=== PATIENT | female | born 1965 | race African-American/Black ===

== ENCOUNTER 2018-08-06 08:13 | Emergency (ER) | payer MEDICAID ==
[~2018-08-06] VITALS: Ht 172.7 cm; Wt 73.5 kg
[2018-08-06 08:30] VITALS: BP 159/57
[2018-08-06] MEDS ORDERED: ALBUTEROL SULF 2.5 MG/0.5ML(0.5%) NEB SOLN NEB ONE (09:00)
[2018-08-06] MEDS ORDERED: cefTRIAXone SOD 1,000 MG VL IM ONE (09:00)
[2018-08-06] MEDS ORDERED: IPRATROPIUM BROM 0.5 MG/2.5ML INH SOL NEB ONE (09:00)
[2018-08-06] MEDS ORDERED: methylPREDNISolone SOD SUCC 125 MG/2 ML VL IM ONE (09:00)
== END 2018-08-06 09:39 | disposition home or self-care (01) ==
LOC: ER 08:13
DX: J45.901 Unspecified asthma with (acute) exacerbation (principal); J02.9 Acute pharyngitis, unspecified; F41.9 Anxiety disorder, unspecified; F17.210 Nicotine dependence, cigarettes, uncomplicated; Z86.39 Personal history of other endocrine, nutritional and metabolic disease
CPT/HCPCS: 71046; 94640; 96372; 99283; J0696; J2930; J7611; J7644

== ENCOUNTER 2018-08-17 03:28 | Emergency (ER) | payer MEDICAID ==
[~2018-08-17] VITALS: Ht 172.7 cm; Wt 78.9 kg
[2018-08-17 04:23] LABS: Basophils # (auto) 0 uL; Basophils % (auto) 0.2 % (0.0-2.0); Eosinophils # (auto) 0.1 uL; Hematocrit 42.5 % (36.0-46.0); Hemoglobin 14.2 g/dL (12.2-16.2); Lymphocytes % (auto) 30.4 % (10.0-50.0); Mean Corpuscular Hemoglobin 29.3 pg (28.0-32.0); Mean Corpuscular Hgb Conc. 33.4 g/dL (32.0-36.0); Mean Corpuscular Volume 87.8 fL (80.0-100.0); Monocytes # (auto) 0.6 uL; Monocytes % (auto) 6.3 % (0.0-12.0); Neutrophils # (auto) 6.2 uL; Neutrophils % (auto) 62.1 % (37.0-80.0); Nucleated Red Blood Cells % 0.1 %; Platelet Count (auto) 185 10^3/uL (140-450); Red Blood Cells 4.84 10^6/uL (4.0-5.20); Red Cell Distribution Width 17.4 % (11.8-14.3)
[2018-08-17 04:40] LABS: Albumin 3.1 g/dL (3.4-5.0); Anion Gap 7 (5-15); Blood Urea Nitrogen 17 mg/dL (7-18); Calcium 8.3 mg/dL (8.5-10.1); Carbon Dioxide 25 mmol/L (21-32); Chloride 110 mmol/L (98-107); Glucose 120 mg/dL (74-106); Magnesium 2.3 mg/dL (1.6-2.6); Potassium 3.7 mmol/L (3.5-5.1); Sodium 142 mmol/L (136-145)
[2018-08-17 04:42] LABS: Alanine Aminotransferase 45 U/L (13-56); Aspartate Aminotransferase 40 U/L (15-37); BUN/Creatinine Ratio 16.8; GFR African American 73 mL/min; GFR Non-African American 61 mL/min
[2018-08-17 04:46] LABS: Alkaline Phosphatase 164 U/L (45-117); Bilirubin, Total 0.9 mg/dL (0.2-1.0); Total Protein 6.5 g/dL (6.4-8.2)
[2018-08-17] MEDS ORDERED: DILTIAZEM HCL 25 MG/5 ML VIAL IV ONE ×2 (05:15→06:15)
[2018-08-17] MEDS ORDERED: DILTIAZEM HCL 60 MG TAB PO ONE (05:15)
[2018-08-17 07:49] VITALS: BP 116/52
== END 2018-08-17 08:09 | disposition home or self-care (01) ==
LOC: ER 03:29
DX: I48.0 Paroxysmal atrial fibrillation (principal); I48.2 Chronic atrial fibrillation; E05.00 Thyrotoxicosis with diffuse goiter without thyrotoxic crisis or storm; F41.9 Anxiety disorder, unspecified; J45.909 Unspecified asthma, uncomplicated; F17.210 Nicotine dependence, cigarettes, uncomplicated
CPT/HCPCS: 36415; 71045; 80053; 83735; 83880; 84443; 84484; 85025; 93005; 96374

== ENCOUNTER 2020-07-22 08:35 | Inpatient (IN) | payer MEDICAID ==
[2020-07-22] VITALS (38 sets, daily range): BP systolic 54–136; BP diastolic 16–74
[~2020-07-22] VITALS: Ht 172.7 cm; Wt 102.9 kg
[~2020-07-22 08:35] MED LIST: FURO40TA4 PO; LEVO500T31 PO; METH10TA6 PO; METO25TA5 PO; POTA10TA51 PO; RIV20T PO; SACU1TAB PO
[2020-07-22] MEDS ORDERED: FUROSEMIDE 100 MG/10ML VIAL IV ONE (09:15)
[2020-07-22 09:22] LABS: Basophils # (auto) 0 10 ^3/uL (0-0.2); Basophils % (auto) 0.6 % (0.0-2.0); Eosinophils # (auto) 0 10 ^3/uL (0-0.8); Eosinophils % (auto) 0.1 % (0.0-7.0); Hematocrit 39.7 % (36.0-46.0); Hemoglobin 13.2 g/dL (12.2-16.2); Lymphocytes # (auto) 1.6 10 ^3/uL (0.4-5.4); Lymphocytes % (auto) 22.4 % (10.0-50.0); Mean Corpuscular Hemoglobin 30.2 pg (28.0-32.0); Mean Corpuscular Hgb Conc. 33.3 g/dL (32.0-36.0); Mean Corpuscular Volume 90.7 fL (80.0-100.0); Monocytes # (auto) 1.2 10 ^3/uL (0-1.3); Monocytes % (auto) 17.7 % (0.0-12.0); Neutrophils # (auto) 4.2 10 ^3/uL (1.6-8.6); Neutrophils % (auto) 59.2 % (37.0-80.0); Nucleated Red Blood Cells % 0.3 %; Platelet Count (auto) 177 10^3/uL (140-450); Red Blood Cells 4.38 10^6/uL (4.0-5.20)
[2020-07-22 09:26] LABS: Red Cell Distribution Width 20.6 % (11.8-14.3)
[2020-07-22 10:22] LABS: Albumin 1.9 g/dL (3.4-5.0); Calcium 8.6 mg/dL (8.5-10.1); Magnesium 2.1 mg/dL (1.6-2.6)
[2020-07-22 10:28] LABS: BUN/Creatinine Ratio 14.1; Bilirubin, Total 20.4 mg/dL (0.2-1.0); Total Protein 6.5 g/dL (6.4-8.2)
[2020-07-22 10:38] LABS: Potassium 2.8 mmol/L (3.5-5.1)
[2020-07-22 10:40] LABS: Urine Bacteria FEW /hpf (None Seen); Urine Blood Negative /uL (Negative); Urine Mucus FEW (None Seen); Urine Specific Gravity 1.017 (1.001-1.035); Urine WBC 6 /hpf (0 - 5)
[2020-07-22] MEDS ORDERED: POTASSIUM EFFERVESENT TAB 25 MEQ PO ONE ×2 (10:45→13:45)
[2020-07-22] MEDS: CARVEDILOL 3.125 MG TAB PO SCH (11:30)
[2020-07-22] MEDS ORDERED: ONDANSETRON HCL 4 MG/2 ML VIAL IV PRN (11:30)
[2020-07-22] MEDS ORDERED: AMIODARONE HCL 150 MG in D5W 5% 100 ML IV ONE (11:30)
[2020-07-22] MEDS ORDERED: guaiFENesin-DM 100/10mg/5ml SYR PO PRN (11:30)
[2020-07-22] MEDS ORDERED: ACETAMINOPHEN 500 MG TAB PO PRN (11:30)
[2020-07-22] MEDS ORDERED: NITROGLYCERIN 0.4 MG SL TAB SL PRN (11:30)
[2020-07-22] MEDS ORDERED: MORPHINE SULF INJ 2 MG/ML SYRINGE 1ML IV PRN (11:30)
[2020-07-22] MEDS ORDERED: AMIODARONE 450mg/250ml AE 250 ML IV SCH ×2 (11:45→17:45)
[2020-07-22] MEDS ORDERED: PANTOPRAZOLE 40 MG TAB PO ONE (11:45)
[2020-07-22] MEDS ORDERED: SPIRONOLACTONE 25 MG TAB PO ONE (11:45)
[2020-07-22] MEDS ORDERED: LISINOPRIL 5 MG TAB PO ONE (11:45)
[2020-07-22] MEDS ORDERED: FUROSEMIDE 40 MG TAB PO ONE (11:45)
[2020-07-22] MEDS ORDERED: ASPirin 81 mg TAB PO ONE (11:45)
[2020-07-22 12:53] LABS: INR 1.72 (0.9-1.15); Partial Thromboplastin Time 28.8 sec (23.0-31.2)
[2020-07-22] MEDS ORDERED: DIGOXIN (250MCG/ML) 2 ML AMPULE IV ONE ×3 (13:45→22:30)
[2020-07-22 13:46] LABS: Amphetamine Screen, Urine POSITIVE (NEGATIVE); Barbiturate Scree,Urine NEGATIVE (NEGATIVE); Cannabinoid Screen, Urine NEGATIVE (NEGATIVE)
[2020-07-22 13:48] LABS: Alcohol, Urine < 3.0 mg/dL (0-10); Benzodiazephine Screen, Urine NEGATIVE (NEGATIVE); Cocaine Screen, Urine NEGATIVE (NEGATIVE); Opiate Scree,Urine NEGATIVE (NEGATIVE); Phencyclidine Screen, Urine NEGATIVE (NEGATIVE)
[2020-07-22] MEDS ORDERED: DOPamine 1600MCG/ML D5W 250 ML IV SCH (14:30)
[2020-07-22] MEDS ORDERED: DOPamine 1600MCG/ML D5W 250 ML IV ONE (14:32)
[2020-07-22] MEDS ORDERED: DOBUTamine 1000MCG/ML 250 ML IV SCH (14:45)
[2020-07-22] MEDS ORDERED: DIGOXIN (250MCG/ML) 2 ML AMPULE IV SCH (15:00)
[2020-07-22] MEDS: CLINDAMYCIN 300MG IV 50 ML IV SCH ×2 (17:16→21:39)
[2020-07-22] MEDS: SPIRONOLACTONE 25 MG TAB PO SCH (18:35)
[2020-07-22] MEDS ORDERED: SODIUM CHLORIDE 0.9% 500 ML IV ONE (20:30)
[2020-07-22] MEDS: PHENYLEPHRINE IV 250 ML IV SCH (20:43)
[2020-07-22] MEDS ORDERED: ENOXAPARIN SOD 80 MG/0.8ML SYRINGE SC SCH (22:00)
[2020-07-22 22:43] LABS: Lactic Acid w/Reflex 2.1 mmol/L (0.4-2.0)
[2020-07-23] VITALS (93 sets, daily range): BP systolic 73–119; BP diastolic 29–83
[2020-07-23] MEDS: FUROSEMIDE 40 MG TAB PO SCH ×3 (00:55→17:21)
[2020-07-23] MEDS: CARVEDILOL 3.125 MG TAB PO SCH ×2 (00:56→09:32)
[2020-07-23 04:36] LABS: Calcium 8.6 mg/dL (8.5-10.1); Potassium 3.4 mmol/L (3.5-5.1)
[2020-07-23 04:39] LABS: BUN/Creatinine Ratio 14.8; Bilirubin, Total 23.4 mg/dL (0.2-1.0); Total Protein 6.5 g/dL (6.4-8.2)
[2020-07-23] MEDS: PHENYLEPHRINE IV 250 ML IV SCH (05:32)
[2020-07-23] MEDS: CLINDAMYCIN 300MG IV 50 ML IV SCH ×3 (06:19→21:38)
[2020-07-23] MEDS: SPIRONOLACTONE 25 MG TAB PO SCH ×2 (06:20→17:21)
[2020-07-23] MEDS ORDERED: POTASSIUM CHL 20MEQ/100ML 100 ML IV ONE (07:00)
[2020-07-23] MEDS ORDERED: POTASSIUM EFFERVESENT TAB 25 MEQ PO ONE (08:45)
[2020-07-23] MEDS ORDERED: POTASSIUM CHL 20 Meq TABLET PO ONE (09:00)
[2020-07-23] MEDS: PANTOPRAZOLE 40 MG TAB PO SCH (09:45)
[2020-07-23] MEDS: ASPirin 81 mg TAB PO SCH (09:45)
[2020-07-23] MEDS: DOBUTamine 1000MCG/ML 250 ML IV SCH ×2 (09:46→19:13)
[2020-07-23] MEDS: DIGOXIN (250MCG/ML) 2 ML AMPULE IV SCH (09:46)
[2020-07-23] MEDS ORDERED: LISINOPRIL 5 MG TAB PO SCH (10:00)
[2020-07-23] MEDS ORDERED: DIGOXIN 0.125 MG TAB PO SCH (10:00)
[2020-07-23] MEDS: PHENYLEPHRINE INJ 40 MG in SODIUM CHL 0.9% 246 ML IV SCH ×4 (10:54→22:08)
[2020-07-23 11:59] LABS: Free T3 9.83 pg/mL (2.3-4.2); Free T4 (Free Thyroxine) 1.87 ng/dL (0.89-1.76)
[2020-07-23] MEDS ORDERED: LIDOCAINE 1% (LOCAL ANESTH.) PF 5ml SDV ID ONE (13:15)
[2020-07-23] MEDS: NOREPINEPHRINE BITARTRATE 16 MG in SODIUM CHL 0.9% 234 ML IV SCH (13:33)
[2020-07-23] MEDS ORDERED: DEXTROSE (50%) 50ML SYRG IV PRN (13:45)
[2020-07-23] MEDS: ACCU-CHEK COMFORT CURVE STRIP VI SCH ×2 (17:21→21:55)
[2020-07-23] MEDS: InsuLIN REG 1unit/0.01ml Soln (100units/ml) SC SCH ×2 (17:30→22:03)
[2020-07-23] MEDS: MUPIROCIN 2% OINT 15gm or 22gm EACHNOSTRI SCH (21:38)
[2020-07-23] MEDS: POTASSIUM CHL 20 Meq TABLET PO SCH (21:39)
[2020-07-23] MEDS: SODIUM CHLOR 0.9% PF (SALINE LOCK) 10ML VIAL/SYR IV SCH (21:39)
[2020-07-24] VITALS (83 sets, daily range): BP systolic 94–129; BP diastolic 24–77
[2020-07-24] MEDS: PHENYLEPHRINE INJ 40 MG in SODIUM CHL 0.9% 246 ML IV SCH ×4 (02:02→13:41)
[2020-07-24] MEDS: DOBUTamine 1000MCG/ML 250 ML IV SCH ×2 (03:27→13:25)
[2020-07-24 04:21] LABS: Basophils # (auto) 0 10 ^3/uL (0-0.2); Basophils % (auto) 0.3 % (0.0-2.0); Eosinophils # (auto) 0 10 ^3/uL (0-0.8); Hematocrit 39.1 % (36.0-46.0); Hemoglobin 13.3 g/dL (12.2-16.2); Lymphocytes % (auto) 13.7 % (10.0-50.0); Mean Corpuscular Hemoglobin 30.7 pg (28.0-32.0); Mean Corpuscular Hgb Conc. 33.9 g/dL (32.0-36.0); Mean Corpuscular Volume 90.4 fL (80.0-100.0); Monocytes % (auto) 13.8 % (0.0-12.0); Neutrophils # (auto) 5.3 10 ^3/uL (1.6-8.6); Neutrophils % (auto) 72.2 % (37.0-80.0); Nucleated Red Blood Cells % 0.4 %; Platelet Count (auto) 160 10^3/uL (140-450); Red Blood Cells 4.32 10^6/uL (4.0-5.20); Red Cell Distribution Width 19.7 % (11.8-14.3); White Blood Cell 7.3 10^3/uL (4.4-10.8)
[2020-07-24 04:43] LABS: Albumin 1.9 g/dL (3.4-5.0); Anion Gap 8 (5-15); Blood Urea Nitrogen 28 mg/dL (7-18); Calcium 8.4 mg/dL (8.5-10.1); Carbon Dioxide 28 mmol/L (21-32); Chloride 97 mmol/L (98-107); Glucose 93 mg/dL (74-106); Magnesium 2.2 mg/dL (1.6-2.6); Potassium 3.8 mmol/L (3.5-5.1); Sodium 133 mmol/L (136-145)
[2020-07-24 04:47] LABS: INR 1.76 (0.9-1.15)
[2020-07-24 04:48] LABS: Alanine Aminotransferase 19 U/L (13-56); Alkaline Phosphatase 207 U/L (45-117); Aspartate Aminotransferase 45 U/L (15-37); BUN/Creatinine Ratio 20.1; Bilirubin, Total 21.9 mg/dL (0.2-1.0); Cholesterol < 50 mg/dL (< 200); GFR African American 50 mL/min; GFR Non-African American 42 mL/min; HDL Cholesterol 10 mg/dL (40-59); Total Protein 6.2 g/dL (6.4-8.2); Triglycerides 125 mg/dL (< 150)
[2020-07-24] MEDS: SPIRONOLACTONE 25 MG TAB PO SCH (05:39)
[2020-07-24] MEDS: CLINDAMYCIN 300MG IV 50 ML IV SCH ×3 (05:57→21:43)
[2020-07-24] MEDS: InsuLIN REG 1unit/0.01ml Soln (100units/ml) SC SCH ×2 (05:57→11:04)
[2020-07-24] MEDS: ACCU-CHEK COMFORT CURVE STRIP VI SCH ×2 (05:57→11:02)
[2020-07-24] MEDS: FUROSEMIDE 40 MG TAB PO SCH (05:57)
[2020-07-24] MEDS: POTASSIUM CHL 20 Meq TABLET PO SCH ×2 (10:59→21:45)
[2020-07-24] MEDS: PANTOPRAZOLE 40 MG TAB PO SCH (10:59)
[2020-07-24] MEDS: ASPirin 81 mg TAB PO SCH (10:59)
[2020-07-24] MEDS: DIGOXIN (250MCG/ML) 2 ML AMPULE IV SCH (11:00)
[2020-07-24] MEDS: SODIUM CHLOR 0.9% PF (SALINE LOCK) 10ML VIAL/SYR IV SCH ×2 (11:01→21:44)
[2020-07-24] MEDS: MUPIROCIN 2% OINT 15gm or 22gm EACHNOSTRI SCH ×2 (11:01→21:42)
[2020-07-24] MEDS: NOREPINEPHRINE BITARTRATE 16 MG in SODIUM CHL 0.9% 234 ML IV SCH (11:45)
[2020-07-24 12:22] LABS: LDL Cholesterol 36 mg/dL (< 100)
[2020-07-24] MEDS: FUROSEMIDE 40 MG/4 ML VIAL IV SCH (17:17)
[2020-07-24] MEDS ORDERED: FUROSEMIDE 20 MG/2 ML VIAL IV SCH (18:00)
[2020-07-24] MEDS: PHENYLEPHRINE INJ 80 MG in SODIUM CHL 0.9% 242 ML IV SCH (18:00)
[2020-07-24] MEDS: CARVEDILOL 3.125 MG TAB PO SCH (21:45)
[2020-07-24] MEDS: methIMAzole 5 MG TAB PO SCH (21:46)
[2020-07-25] VITALS (79 sets, daily range): BP systolic 93–136; BP diastolic 28–75
[2020-07-25 05:36] LABS: INR 1.77 (0.9-1.15)
[2020-07-25 05:41] LABS: Albumin 1.7 g/dL (3.4-5.0); Calcium 8.2 mg/dL (8.5-10.1)
[2020-07-25 05:45] LABS: BUN/Creatinine Ratio 27.3; Bilirubin, Total 21.1 mg/dL (0.2-1.0); Total Protein 6.1 g/dL (6.4-8.2)
[2020-07-25] MEDS: CLINDAMYCIN 300MG IV 50 ML IV SCH ×3 (06:21→22:31)
[2020-07-25] MEDS: FUROSEMIDE 40 MG/4 ML VIAL IV SCH ×2 (06:23→17:56)
[2020-07-25] MEDS: DOBUTamine 1000MCG/ML 250 ML IV SCH ×3 (08:09→17:55)
[2020-07-25] MEDS: ASPirin 81 mg TAB PO SCH (09:18)
[2020-07-25] MEDS: methIMAzole 5 MG TAB PO SCH ×2 (09:18→22:50)
[2020-07-25] MEDS: PANTOPRAZOLE 40 MG TAB PO SCH (09:19)
[2020-07-25] MEDS: DIGOXIN (250MCG/ML) 2 ML AMPULE IV SCH (09:19)
[2020-07-25] MEDS: SODIUM CHLOR 0.9% PF (SALINE LOCK) 10ML VIAL/SYR IV SCH ×2 (09:19→22:32)
[2020-07-25] MEDS: SPIRONOLACTONE 25 MG TAB PO SCH (09:20)
[2020-07-25] MEDS: CARVEDILOL 3.125 MG TAB PO SCH ×2 (09:20→22:49)
[2020-07-25] MEDS: POTASSIUM CHL 20 Meq TABLET PO SCH (09:20)
[2020-07-25 09:31] LABS: Hepatitis B Surface Antibody Negative
[2020-07-25] MEDS: MUPIROCIN 2% OINT 15gm or 22gm EACHNOSTRI SCH ×2 (09:37→22:31)
[2020-07-25 10:10] LABS: Hepatitis A Total Antibody Negative
[2020-07-25] MEDS: PHENYLEPHRINE INJ 80 MG in SODIUM CHL 0.9% 242 ML IV SCH (11:06)
[2020-07-25 13:15] LABS: Hepatitis B Core Total AB Negative; Hepatitis B Surface Antigen Negative (Negative); Hepatitis C Antibody Negative (Negative)
[2020-07-25] MEDS: RIVAROXABAN 20 MG TAB PO SCH (17:56)
[2020-07-25] MEDS: POTASSIUM CHL 10 Meq TABLET PO SCH (22:34)
[2020-07-26] VITALS (27 sets, daily range): BP systolic 108–133; BP diastolic 35–78
[2020-07-26] MEDS: LORazepam 0.5 MG TAB PO PRN (01:19)
[2020-07-26] MEDS: DOBUTamine 1000MCG/ML 250 ML IV SCH ×3 (03:37→23:52)
[2020-07-26 04:40] LABS: Albumin 1.7 g/dL (3.4-5.0); Calcium 8.3 mg/dL (8.5-10.1); Magnesium 2.1 mg/dL (1.6-2.6); Potassium 4.4 mmol/L (3.5-5.1)
[2020-07-26 04:45] LABS: BUN/Creatinine Ratio 32.6; Bilirubin, Total 21.3 mg/dL (0.2-1.0); Total Protein 6.3 g/dL (6.4-8.2)
[2020-07-26] MEDS: CLINDAMYCIN 300MG IV 50 ML IV SCH ×3 (06:01→22:08)
[2020-07-26] MEDS: FUROSEMIDE 40 MG/4 ML VIAL IV SCH ×2 (06:02→17:53)
[2020-07-26] MEDS: PANTOPRAZOLE 40 MG TAB PO SCH (09:54)
[2020-07-26] MEDS: ASPirin 81 mg TAB PO SCH (09:54)
[2020-07-26] MEDS: SPIRONOLACTONE 25 MG TAB PO SCH (09:55)
[2020-07-26] MEDS: POTASSIUM CHL 10 Meq TABLET PO SCH ×2 (09:55→22:07)
[2020-07-26] MEDS: methIMAzole 5 MG TAB PO SCH ×2 (09:56→22:08)
[2020-07-26] MEDS: DIGOXIN (250MCG/ML) 2 ML AMPULE IV SCH (09:56)
[2020-07-26] MEDS: MUPIROCIN 2% OINT 15gm or 22gm EACHNOSTRI SCH ×2 (09:56→22:00)
[2020-07-26] MEDS: SODIUM CHLOR 0.9% PF (SALINE LOCK) 10ML VIAL/SYR IV SCH ×2 (09:59→22:09)
[2020-07-26] MEDS: CARVEDILOL 3.125 MG TAB PO SCH ×2 (12:49→22:08)
[2020-07-26] MEDS: RIVAROXABAN 20 MG TAB PO SCH (17:53)
[2020-07-27 05:11] VITALS: BP 126/66
[2020-07-27] MEDS: CLINDAMYCIN 300MG IV 50 ML IV SCH (05:14)
[2020-07-27] MEDS: FUROSEMIDE 40 MG/4 ML VIAL IV SCH ×2 (05:15→17:47)
[2020-07-27 08:20] LABS: Basophils # (auto) 0 10 ^3/uL (0-0.2); Basophils % (auto) 0.2 % (0.0-2.0); Eosinophils # (auto) 0 10 ^3/uL (0-0.8); Eosinophils % (auto) 0.1 % (0.0-7.0); Hematocrit 40.8 % (36.0-46.0); Hemoglobin 13.7 g/dL (12.2-16.2); Lymphocytes # (auto) 0.9 10 ^3/uL (0.4-5.4); Lymphocytes % (auto) 18.9 % (10.0-50.0); Mean Corpuscular Hemoglobin 30.4 pg (28.0-32.0); Mean Corpuscular Hgb Conc. 33.6 g/dL (32.0-36.0); Mean Corpuscular Volume 90.5 fL (80.0-100.0); Monocytes # (auto) 0.9 10 ^3/uL (0-1.3); Monocytes % (auto) 17.6 % (0.0-12.0); Neutrophils # (auto) 3.2 10 ^3/uL (1.6-8.6); Neutrophils % (auto) 63.2 % (37.0-80.0); Nucleated Red Blood Cells % 0.9 %; Platelet Count (auto) 142 10^3/uL (140-450); Red Blood Cells 4.51 10^6/uL (4.0-5.20); Red Cell Distribution Width 20.6 % (11.8-14.3)
[2020-07-27 08:50] VITALS: BP 110/70
[2020-07-27 08:56] LABS: Albumin 1.8 g/dL (3.4-5.0); Calcium 8.6 mg/dL (8.5-10.1); Potassium 4.1 mmol/L (3.5-5.1)
[2020-07-27 09:03] LABS: BUN/Creatinine Ratio 32.5; Bilirubin, Total 22.9 mg/dL (0.2-1.0); Total Protein 6.4 g/dL (6.4-8.2)
[2020-07-27] MEDS: DOBUTamine 1000MCG/ML 250 ML IV SCH ×3 (09:11→20:23)
[2020-07-27] MEDS ORDERED: PHYTONADIONE (VIT K)10 MG/ML 1ML VIAL SUBCUT ONE (10:45)
[2020-07-27] MEDS ORDERED: PHYTONADIONE(VitK) ORAL Susp 10mg/10ml(1mg/ml) PO ONE (11:00)
[2020-07-27] MEDS: CARVEDILOL 3.125 MG TAB PO SCH ×2 (11:30→23:16)
[2020-07-27] MEDS: DIGOXIN (250MCG/ML) 2 ML AMPULE IV SCH (11:36)
[2020-07-27] MEDS: PANTOPRAZOLE 40 MG TAB PO SCH (11:37)
[2020-07-27] MEDS: POTASSIUM CHL 10 Meq TABLET PO SCH ×2 (11:37→23:16)
[2020-07-27] MEDS: methIMAzole 5 MG TAB PO SCH ×2 (11:37→23:16)
[2020-07-27] MEDS: SPIRONOLACTONE 25 MG TAB PO SCH (11:37)
[2020-07-27] MEDS: SODIUM CHLOR 0.9% PF (SALINE LOCK) 10ML VIAL/SYR IV SCH ×2 (11:39→23:15)
[2020-07-27 13:00] VITALS: BP 123/56
[2020-07-27] MEDS: MUPIROCIN 2% OINT 15gm or 22gm EACHNOSTRI SCH ×2 (15:25→23:15)
[2020-07-27 16:50] VITALS: BP 128/64
[2020-07-27 21:50] VITALS: BP 123/56
[2020-07-28 04:57] VITALS: BP 132/63
[2020-07-28 05:01] LABS: Hematocrit 41.4 % (36.0-46.0)
[2020-07-28] MEDS: FUROSEMIDE 40 MG/4 ML VIAL IV SCH ×2 (05:07→17:58)
[2020-07-28 05:13] LABS: INR 2.31 (0.9-1.15)
[2020-07-28 05:15] LABS: Albumin 1.9 g/dL (3.4-5.0); Calcium 8.6 mg/dL (8.5-10.1); Magnesium 2.4 mg/dL (1.6-2.6); Potassium 4.6 mmol/L (3.5-5.1)
[2020-07-28 05:18] LABS: BUN/Creatinine Ratio 30.4; Bilirubin, Total 22.7 mg/dL (0.2-1.0); Total Protein 6.5 g/dL (6.4-8.2)
[2020-07-28 08:30] VITALS: BP 107/70
[2020-07-28] MEDS: MUPIROCIN 2% OINT 15gm or 22gm EACHNOSTRI SCH (10:25)
[2020-07-28] MEDS: DOBUTamine 1000MCG/ML 250 ML IV SCH ×2 (10:25→20:13)
[2020-07-28] MEDS: POTASSIUM CHL 10 Meq TABLET PO SCH (10:26)
[2020-07-28] MEDS: methIMAzole 5 MG TAB PO SCH ×2 (10:27→21:50)
[2020-07-28] MEDS: PANTOPRAZOLE 40 MG TAB PO SCH (10:27)
[2020-07-28] MEDS: SODIUM CHLOR 0.9% PF (SALINE LOCK) 10ML VIAL/SYR IV SCH ×2 (10:27→21:49)
[2020-07-28] MEDS: DIGOXIN (250MCG/ML) 2 ML AMPULE IV SCH (10:29)
[2020-07-28] MEDS: MORPHINE SULF INJ 2 MG/ML SYRINGE 1ML IV PRN (10:47)
[2020-07-28] MEDS: CARVEDILOL 3.125 MG TAB PO SCH ×2 (10:48→21:50)
[2020-07-28] MEDS ORDERED: PHYTONADIONE(VitK) ORAL Susp 10mg/10ml(1mg/ml) PO ONE (11:00)
[2020-07-28] MEDS: SPIRONOLACTONE 25 MG TAB PO SCH (12:28)
[2020-07-28 12:30] VITALS: BP 132/84
[2020-07-28 17:00] VITALS: BP 126/65
[2020-07-28 22:00] VITALS: BP 97/77
[2020-07-28] MEDS: HYDROcodone-ACET 5/325MG TAB PO PRN (23:29)
[2020-07-29] MEDS: LORazepam 0.5 MG TAB PO PRN ×2 (00:22→09:29)
[2020-07-29 05:00] VITALS: BP 102/64
[2020-07-29] MEDS: FUROSEMIDE 40 MG/4 ML VIAL IV SCH ×2 (05:22→18:00)
[2020-07-29] MEDS: DOBUTamine 1000MCG/ML 250 ML IV SCH ×2 (05:23→22:25)
[2020-07-29 06:15] LABS: Hematocrit 42.4 % (36.0-46.0); Hemoglobin 14.4 g/dL (12.2-16.2)
[2020-07-29 06:30] LABS: INR 1.72 (0.9-1.15)
[2020-07-29 06:35] LABS: Potassium 4.3 mmol/L (3.5-5.1)
[2020-07-29 06:50] LABS: BUN/Creatinine Ratio 28.6; Bilirubin, Total 24.3 mg/dL (0.2-1.0); Total Protein 6.6 g/dL (6.4-8.2)
[2020-07-29 08:50] VITALS: BP 110/60
[2020-07-29] MEDS: SODIUM CHLOR 0.9% PF (SALINE LOCK) 10ML VIAL/SYR IV SCH ×2 (09:28→22:23)
[2020-07-29] MEDS: DIGOXIN (250MCG/ML) 2 ML AMPULE IV SCH (09:29)
[2020-07-29] MEDS: SPIRONOLACTONE 25 MG TAB PO SCH (09:29)
[2020-07-29] MEDS: CARVEDILOL 3.125 MG TAB PO SCH ×2 (09:29→22:24)
[2020-07-29] MEDS: PANTOPRAZOLE 40 MG TAB PO SCH (09:29)
[2020-07-29] MEDS: methIMAzole 5 MG TAB PO SCH ×2 (09:29→22:25)
[2020-07-29] MEDS: POTASSIUM CHL 10 Meq TABLET PO SCH (09:30)
[2020-07-29] MEDS: PHYTONADIONE(VitK) ORAL Susp 10mg/10ml(1mg/ml) PO SCH (10:21)
[2020-07-29] MEDS ORDERED: LEVALBUTEROL HCL 1.25 MG/3 ML NEB NEB PRN (12:30)
[2020-07-29] MEDS ORDERED: IPRATROPIUM BROM 0.5 MG/2.5ML INH SOL NEB PRN (12:30)
[2020-07-29 13:31] VITALS: BP 120/73
[2020-07-29 16:30] VITALS: BP 103/63
[2020-07-29] MEDS ORDERED: RIVAROXABAN 20 MG TAB PO SCH (18:00)
[2020-07-29] MEDS: MORPHINE SULF INJ 2 MG/ML SYRINGE 1ML IV PRN (21:48)
[2020-07-29 22:00] VITALS: BP 137/91
[2020-07-29] MEDS: SACUBITRIL-VALSARTAN 24mg/26mg TAB PO SCH (22:25)
[2020-07-30] MEDS: LORazepam 0.5 MG TAB PO PRN ×2 (01:00→12:39)
[2020-07-30] MEDS: MORPHINE SULF INJ 2 MG/ML SYRINGE 1ML IV PRN (02:52)
[2020-07-30 03:54] VITALS: BP 137/91
[2020-07-30 05:00] VITALS: BP 102/39
[2020-07-30] MEDS: FUROSEMIDE 40 MG/4 ML VIAL IV SCH ×2 (05:34→18:00)
[2020-07-30 05:52] LABS: Hematocrit 38.6 % (36.0-46.0); Hemoglobin 13.2 g/dL (12.2-16.2)
[2020-07-30 06:08] LABS: INR 3.64 (0.9-1.15)
[2020-07-30 06:10] LABS: Albumin 1.6 g/dL (3.4-5.0); Magnesium 2.3 mg/dL (1.6-2.6); Potassium 4.5 mmol/L (3.5-5.1)
[2020-07-30 06:21] LABS: Bilirubin, Direct 16.8 mg/dL (0-0.2); Bilirubin, Total 21.9 mg/dL (0.2-1.0); Total Protein 5.8 g/dL (6.4-8.2)
[2020-07-30] MEDS: DOBUTamine 1000MCG/ML 250 ML IV SCH ×2 (09:05→22:27)
[2020-07-30] MEDS: CARVEDILOL 3.125 MG TAB PO SCH ×2 (10:00→22:00)
[2020-07-30] MEDS: SODIUM CHLOR 0.9% PF (SALINE LOCK) 10ML VIAL/SYR IV SCH ×2 (10:00→22:24)
[2020-07-30] MEDS: POTASSIUM CHL 10 Meq TABLET PO SCH (10:00)
[2020-07-30] MEDS: SACUBITRIL-VALSARTAN 24mg/26mg TAB PO SCH ×2 (10:23→22:24)
[2020-07-30] MEDS: methIMAzole 5 MG TAB PO SCH ×2 (10:23→22:24)
[2020-07-30] MEDS: PANTOPRAZOLE 40 MG TAB PO SCH (10:23)
[2020-07-30] MEDS: SPIRONOLACTONE 25 MG TAB PO SCH (10:24)
[2020-07-30] MEDS: PHYTONADIONE(VitK) ORAL Susp 10mg/10ml(1mg/ml) PO SCH (12:39)
[2020-07-30 22:00] VITALS: BP 94/35
[2020-07-30] MEDS ORDERED: ALBUMIN 5% 250 ML IV ONE (23:00)
[2020-07-31 05:00] VITALS: BP 94/34
[2020-07-31] MEDS: FUROSEMIDE 40 MG/4 ML VIAL IV SCH (06:00)
[2020-07-31] MEDS: DOBUTamine 1000MCG/ML 250 ML IV SCH ×3 (06:05→14:34)
[2020-07-31 06:30] LABS: Hematocrit 40.9 % (36.0-46.0); Hemoglobin 13.7 g/dL (12.2-16.2); Mean Corpuscular Hemoglobin 30.4 pg (28.0-32.0); Mean Corpuscular Hgb Conc. 33.5 g/dL (32.0-36.0); Mean Corpuscular Volume 90.9 fL (80.0-100.0); Platelet Count (auto) 122 10^3/uL (140-450); White Blood Cell 10.9 10^3/uL (4.4-10.8)
[2020-07-31 06:35] LABS: Potassium 4.8 mmol/L (3.5-5.1)
[2020-07-31 06:40] LABS: Basophils % (manual) 0 (0.0-2.0); Blast Cells 0; Eosinophils % (manual) 0 (0-7); Myelocytes % 0; Promyelocytes % 0; Reactive Lymphocytes 0; Red Cell Distribution Width 20.9 % (11.8-14.3)
[2020-07-31 06:53] LABS: Albumin 1.4 g/dL (3.4-5.0); Bilirubin, Total 18.7 mg/dL (0.2-1.0); Calcium 8.4 mg/dL (8.5-10.1); Magnesium 2.7 mg/dL (1.6-2.6); Total Protein 4.7 g/dL (6.4-8.2)
[2020-07-31 07:36] LABS: Band Neutrophils % (manual) 4; Lymphocytes % (manual) 14 (10.0-50.0); Metamyelocytes % 1; Monocytes % (manual) 7 (0-12)
[2020-07-31 08:40] VITALS: BP 95/45
[2020-07-31] MEDS: POTASSIUM CHL 10 Meq TABLET PO SCH (09:33)
[2020-07-31] MEDS: SACUBITRIL-VALSARTAN 24mg/26mg TAB PO SCH (09:33)
[2020-07-31] MEDS: SODIUM CHLOR 0.9% PF (SALINE LOCK) 10ML VIAL/SYR IV SCH ×2 (09:33→21:54)
[2020-07-31] MEDS: DIGOXIN 0.125 MG TAB PO SCH (09:34)
[2020-07-31] MEDS: PANTOPRAZOLE 40 MG TAB PO SCH (09:34)
[2020-07-31] MEDS: methIMAzole 5 MG TAB PO SCH ×2 (09:34→21:33)
[2020-07-31] MEDS: PHYTONADIONE(VitK) ORAL Susp 10mg/10ml(1mg/ml) PO SCH (09:36)
[2020-07-31] MEDS: CARVEDILOL 3.125 MG TAB PO SCH ×2 (10:00→21:52)
[2020-07-31] MEDS: SPIRONOLACTONE 25 MG TAB PO SCH (10:00)
[2020-07-31 12:54] VITALS: BP 78/29
[2020-07-31 17:27] VITALS: BP 82/29
[2020-07-31] MEDS: Ensure HIGH Protein Chocolate 8oz Bottle PO SCH (18:25)
[2020-07-31] MEDS: ALBUMIN 25% 100 ML IV SCH (21:32)
[2020-07-31 22:00] VITALS: BP 86/38
[2020-08-01] VITALS (38 sets, daily range): BP systolic 77–158; BP diastolic 14–86
[2020-08-01] MEDS ORDERED: ALBUMIN 5% 250 ML IV ONE (01:30)
[2020-08-01] MEDS: DOBUTamine 1000MCG/ML 250 ML IV SCH ×3 (01:54→21:24)
[2020-08-01] MEDS: ALBUMIN 25% 100 ML IV SCH ×3 (02:40→19:45)
[2020-08-01 06:01] LABS: Basophils # (auto) 0 10 ^3/uL (0-0.2); Basophils % (auto) 0.5 % (0.0-2.0); Eosinophils # (auto) 0 10 ^3/uL (0-0.8); Eosinophils % (auto) 0.1 % (0.0-7.0); Hematocrit 36.3 % (36.0-46.0); Hemoglobin 12.4 g/dL (12.2-16.2); Lymphocytes % (auto) 9.9 % (10.0-50.0); Mean Corpuscular Hemoglobin 30.6 pg (28.0-32.0); Mean Corpuscular Hgb Conc. 34.1 g/dL (32.0-36.0); Mean Corpuscular Volume 89.8 fL (80.0-100.0); Monocytes # (auto) 1.3 10 ^3/uL (0-1.3); Monocytes % (auto) 12.6 % (0.0-12.0); Neutrophils % (auto) 76.9 % (37.0-80.0); Nucleated Red Blood Cells % 0.1 %; Platelet Count (auto) 114 10^3/uL (140-450); Red Blood Cells 4.04 10^6/uL (4.0-5.20); White Blood Cell 10.4 10^3/uL (4.4-10.8)
[2020-08-01 06:09] LABS: Red Cell Distribution Width 20.5 % (11.8-14.3)
[2020-08-01 06:14] LABS: INR 1.76 (0.9-1.15)
[2020-08-01 06:21] LABS: Potassium 5.3 mmol/L (3.5-5.1)
[2020-08-01 06:29] LABS: Albumin 2.2 g/dL (3.4-5.0); BUN/Creatinine Ratio 19.4; Bilirubin, Total 24.3 mg/dL (0.2-1.0); Calcium 8.4 mg/dL (8.5-10.1); Magnesium 2.8 mg/dL (1.6-2.6); Total Protein 4.9 g/dL (6.4-8.2)
[2020-08-01] MEDS: Ensure HIGH Protein Chocolate 8oz Bottle PO SCH ×3 (08:00→18:00)
[2020-08-01] MEDS ORDERED: BUMETANIDE 2.5mg/10ml (0.25 mg/ml) INJ IV ONE (09:00)
[2020-08-01] MEDS: SODIUM CHLOR 0.9% PF (SALINE LOCK) 10ML VIAL/SYR IV SCH ×2 (09:33→22:02)
[2020-08-01] MEDS: CARVEDILOL 3.125 MG TAB PO SCH (09:34)
[2020-08-01] MEDS: PANTOPRAZOLE 40 MG TAB PO SCH (09:34)
[2020-08-01] MEDS: DIGOXIN 0.125 MG TAB PO SCH (09:41)
[2020-08-01] MEDS: PHYTONADIONE(VitK) ORAL Susp 10mg/10ml(1mg/ml) PO SCH (09:42)
[2020-08-01] MEDS: methIMAzole 5 MG TAB PO SCH ×2 (09:56→22:00)
[2020-08-01] MEDS: MUPIROCIN 2% OINT 15gm or 22gm EACHNOSTRI SCH ×2 (10:00→22:00)
[2020-08-01] MEDS ORDERED: SODIUM BICARBONATE 8.4% INJ 50ML SYRINGE IV ONE (11:00)
[2020-08-01] MEDS ORDERED: ALBUTEROL SULF 2.5 MG/0.5ML(0.5%) NEB SOLN NEB ONE (11:00)
[2020-08-01] MEDS ORDERED: SODIUM ZIRCONIUM CYCL 10 GM PAK PO ONE (11:00)
[2020-08-01] MEDS: SODIUM ZIRCONIUM CYCL 10 GM PAK PO SCH ×2 (14:00→22:00)
[2020-08-01 14:11] LABS: Urine Bacteria MANY /hpf (None Seen); Urine Blood 3+ /uL (Negative); Urine Budding Yeast LOADED /hpf (None Seen); Urine WBC 3659 /hpf (0 - 5); Urine WBC Clumps PRESENT /hpf (None Seen)
[2020-08-01 14:13] LABS: Urine Specific Gravity 1.024 (1.001-1.035)
[2020-08-01 14:24] LABS: Protein, Urine 1308.9 mg/dL (0.0-11.9)
[2020-08-01] MEDS ORDERED: cefTRIAXone 1GM/50ML D5W 50 ML IV ONE (16:30)
[2020-08-01] MEDS ORDERED: NOREPINEPHRINE 8 MG/250ML KIT 250 ML IV ONE (16:37)
[2020-08-01] MEDS: NOREPINEPHRINE 8 MG/250ML KIT 250 ML IV SCH (16:45)
[2020-08-01] MEDS ORDERED: LORazepam 2MG/ML-1ML VIAL ONE (17:09)
[2020-08-01] MEDS ORDERED: MORPHINE SULF INJ 2 MG/ML SYRINGE 1ML ONE (17:09)
[2020-08-01] MEDS ORDERED: HEPARIN 1,000 UNITS/ml 1ML VIAL IV ONE ×2 (17:15→17:30)
[2020-08-01] MEDS ORDERED: LIDOCAINE 2% (LOCAL ANESTH.) PF 5ml SDV ONE (17:19)
[2020-08-01] MEDS: BUMETANIDE 2.5mg/10ml (0.25 mg/ml) INJ IV SCH (18:33)
[2020-08-01] MEDS ORDERED: BUMETANIDE INJECTION 25 MG in GIVE UN-DILUTED 0 ML IV SCH (19:00)
[2020-08-01] MEDS: MEROPENEM 500MG IVPB 50 ML IV SCH (22:02)
[2020-08-02] VITALS (65 sets, daily range): BP systolic 89–146; BP diastolic 16–75
[2020-08-02] MEDS: ALBUMIN 25% 100 ML IV SCH ×2 (00:34→13:33)
[2020-08-02] MEDS: NOREPINEPHRINE 8 MG/250ML KIT 250 ML IV SCH (01:30)
[2020-08-02] MEDS ORDERED: PHENYLEPHRINE IV 250 ML IV ONE (05:44)
[2020-08-02] MEDS: VASOPRESSIN 50 UNITS in D5W 5% 247.5 ML IV SCH (05:45)
[2020-08-02] MEDS: PHENYLEPHRINE IV 250 ML IV SCH ×2 (05:45→13:00)
[2020-08-02] MEDS: DOBUTamine 1000MCG/ML 250 ML IV SCH (05:52)
[2020-08-02] MEDS: BUMETANIDE 2.5mg/10ml (0.25 mg/ml) INJ IV SCH ×2 (05:53→19:17)
[2020-08-02] MEDS: SODIUM ZIRCONIUM CYCL 10 GM PAK PO SCH ×3 (05:53→20:51)
[2020-08-02] MEDS ORDERED: SODIUM CHL 0.9% 1000 ML BAG XX ONE (07:00)
[2020-08-02 07:18] LABS: Basophils # (auto) 0 10 ^3/uL (0-0.2); Basophils % (auto) 0.2 % (0.0-2.0); Eosinophils # (auto) 0 10 ^3/uL (0-0.8); Lymphocytes # (auto) 1.1 10 ^3/uL (0.4-5.4); Lymphocytes % (auto) 9.6 % (10.0-50.0); Mean Corpuscular Hemoglobin 30.4 pg (28.0-32.0); Mean Corpuscular Hgb Conc. 34.2 g/dL (32.0-36.0); Mean Corpuscular Volume 88.9 fL (80.0-100.0); Monocytes # (auto) 1.6 10 ^3/uL (0-1.3); Monocytes % (auto) 13.4 % (0.0-12.0); Neutrophils # (auto) 9.1 10 ^3/uL (1.6-8.6); Neutrophils % (auto) 76.8 % (37.0-80.0); Nucleated Red Blood Cells % 0.2 %; Platelet Count (auto) 95 10^3/uL (140-450); Red Blood Cells 3.93 10^6/uL (4.0-5.20); Red Cell Distribution Width 20.5 % (11.8-14.3); White Blood Cell 11.9 10^3/uL (4.4-10.8)
[2020-08-02 07:26] LABS: BUN/Creatinine Ratio 17.7; Calcium 8.7 mg/dL (8.5-10.1); Potassium 5.4 mmol/L (3.5-5.1)
[2020-08-02 07:31] LABS: INR 1.57 (0.9-1.15); Partial Thromboplastin Time 37.5 sec (23.0-31.2)
[2020-08-02] MEDS: Ensure HIGH Protein Chocolate 8oz Bottle PO SCH ×3 (08:00→18:00)
[2020-08-02] MEDS ORDERED: cefTRIAXone 1GM/50ML D5W 50 ML IV SCH (09:00)
[2020-08-02] MEDS: PHYTONADIONE(VitK) ORAL Susp 10mg/10ml(1mg/ml) PO SCH (09:02)
[2020-08-02] MEDS: methIMAzole 5 MG TAB PO SCH ×2 (09:02→20:52)
[2020-08-02] MEDS: PANTOPRAZOLE 40 MG TAB PO SCH (09:02)
[2020-08-02] MEDS: SODIUM CHLOR 0.9% PF (SALINE LOCK) 10ML VIAL/SYR IV SCH ×2 (09:11→20:51)
[2020-08-02] MEDS: MEROPENEM 500MG IVPB 50 ML IV SCH ×2 (09:12→20:51)
[2020-08-02] MEDS: MUPIROCIN 2% OINT 15gm or 22gm EACHNOSTRI SCH ×2 (09:12→20:51)
[2020-08-02 09:49] LABS: Albumin 2.9 g/dL (3.4-5.0)
[2020-08-02 09:58] LABS: Bilirubin, Direct 22.6 mg/dL (0-0.2); Total Protein 5.7 g/dL (6.4-8.2)
[2020-08-02 10:07] LABS: Bilirubin, Total 28.8 mg/dL (0.2-1.0)
[2020-08-02] MEDS ORDERED: IODIXANOL 320MG/ML 100ML BTL IV ONE ×2 (10:24→11:06)
[2020-08-02] MEDS ORDERED: LIDOCAINE 2%HCL (LOCAL ANESTH.) INJ 20ML MDV ONE (10:24)
[2020-08-02] MEDS ORDERED: ANGIOMAX 250 MG VIAL IV ONE (10:40)
[2020-08-02] MEDS ORDERED: fentaNYL CITRATE 100 MCG/2 ML VL ONE (10:40)
[2020-08-02] MEDS ORDERED: MIDAZOLAM HCL 1MG/1ML-2 ML VIAL ONE (10:40)
[2020-08-02] MEDS ORDERED: SODIUM CHL 0.9% 0 ML ONE (10:41)
[2020-08-02] MEDS ORDERED: VERAPAMIL 2.5MG/ML INJ 2ML VIAL IV ONE (10:42)
[2020-08-02] MEDS ORDERED: HEPARIN SODIUM (PORCINE) 5000 UNITS/ML 1ML VIAL ONE (10:42)
[2020-08-02] MEDS ORDERED: HYDROmorphone HCL 2 MG/ML VL ONE (11:02)
[2020-08-02] MEDS ORDERED: PHENYLEPHRINE INJ 40 MG in SODIUM CHL 0.9% 246 ML IV SCH (15:30)
[2020-08-02] MEDS: PHENYLEPHRINE INJ 80 MG in SODIUM CHL 0.9% 242 ML IV SCH (17:30)
[2020-08-02] MEDS: NOREPINEPHRINE BITARTRATE 16 MG in SODIUM CHL 0.9% 234 ML IV SCH (17:31)
[2020-08-02] MEDS: HYDROcodone-ACET 5/325MG TAB PO PRN (20:54)
[2020-08-02] MEDS: DOBUTamine HCL 500 MG in D5W 5% 210 ML IV SCH (23:02)
[2020-08-03] VITALS (51 sets, daily range): BP systolic 99–150; BP diastolic 20–54
[2020-08-03] MEDS: NOREPINEPHRINE BITARTRATE 16 MG in SODIUM CHL 0.9% 234 ML IV SCH (00:27)
[2020-08-03] MEDS: PHENYLEPHRINE INJ 80 MG in SODIUM CHL 0.9% 242 ML IV SCH ×2 (00:28→11:23)
[2020-08-03] MEDS: MORPHINE SULF INJ 2 MG/ML SYRINGE 1ML IV PRN ×2 (00:34→10:40)
[2020-08-03] MEDS: VASOPRESSIN 50 UNITS in D5W 5% 247.5 ML IV SCH (05:45)
[2020-08-03] MEDS: BUMETANIDE 2.5mg/10ml (0.25 mg/ml) INJ IV SCH (06:41)
[2020-08-03] MEDS: SODIUM ZIRCONIUM CYCL 10 GM PAK PO SCH ×3 (06:42→14:00)
[2020-08-03] MEDS: DOBUTamine HCL 500 MG in D5W 5% 210 ML IV SCH ×2 (07:07→14:34)
[2020-08-03 07:59] LABS: Basophils # (auto) 0 10 ^3/uL (0-0.2); Basophils % (auto) 0.2 % (0.0-2.0); Eosinophils # (auto) 0 10 ^3/uL (0-0.8); Hematocrit 34.3 % (36.0-46.0); Hemoglobin 11.7 g/dL (12.2-16.2); Lymphocytes # (auto) 1.1 10 ^3/uL (0.4-5.4); Lymphocytes % (auto) 7.6 % (10.0-50.0); Mean Corpuscular Hemoglobin 30.9 pg (28.0-32.0); Mean Corpuscular Hgb Conc. 34.2 g/dL (32.0-36.0); Mean Corpuscular Volume 90.3 fL (80.0-100.0); Monocytes # (auto) 1.8 10 ^3/uL (0-1.3); Monocytes % (auto) 12.6 % (0.0-12.0); Neutrophils # (auto) 11.6 10 ^3/uL (1.6-8.6); Neutrophils % (auto) 79.6 % (37.0-80.0); Nucleated Red Blood Cells % 0.1 %; Platelet Count (auto) 90 10^3/uL (140-450); White Blood Cell 14.6 10^3/uL (4.4-10.8)
[2020-08-03] MEDS: Ensure HIGH Protein Chocolate 8oz Bottle PO SCH (08:00)
[2020-08-03 08:11] LABS: Red Cell Distribution Width 20.6 % (11.8-14.3)
[2020-08-03 08:35] LABS: Potassium 5.2 mmol/L (3.5-5.1)
[2020-08-03] MEDS: MUPIROCIN 2% OINT 15gm or 22gm EACHNOSTRI SCH (08:55)
[2020-08-03 08:56] LABS: Albumin 2.8 g/dL (3.4-5.0); BUN/Creatinine Ratio 17.5; Calcium 8.3 mg/dL (8.5-10.1)
[2020-08-03] MEDS: SODIUM CHLOR 0.9% PF (SALINE LOCK) 10ML VIAL/SYR IV SCH (08:56)
[2020-08-03] MEDS: MEROPENEM 500MG IVPB 50 ML IV SCH (08:56)
[2020-08-03] MEDS: PHYTONADIONE(VitK) ORAL Susp 10mg/10ml(1mg/ml) PO SCH (08:57)
[2020-08-03] MEDS: PANTOPRAZOLE 40 MG TAB PO SCH (08:57)
[2020-08-03 09:06] LABS: Total Protein 5.5 g/dL (6.4-8.2)
[2020-08-03] MEDS ORDERED: BUMETANIDE INJECTION 12.5 MG in GIVE UN-DILUTED 0 ML IV SCH (09:30)
[2020-08-03] MEDS: methIMAzole 5 MG TAB PO SCH (09:58)
[2020-08-03] MEDS ORDERED: DIGOXIN 0.125 MG TAB PO SCH (10:00)
== END 2020-08-03 18:45 | disposition short-term general hospital (02) | DRG 720 ==
LOC: EDBD 08:35 → ER 08:35 → OVERFLOW 08:36 → ICU WEST 14:38 → TELE-EAST 07-26 14:46 → TELE-CENTR 07-29 16:52 → DOU IN ICU 08-01 15:00
PROVIDERS: ADMIT Nurse Practitioner Acute Care; ATTEND Internal Medicine Pulmonary Disease
PROC: 0W993ZZ Drainage of Right Pleural Cavity, Percutaneous Approach (ICD-10-PCS; 2020-07-24)
PROC: 05HC33Z Insertion of Infusion Device into Left Basilic Vein, Percutaneous Approach (ICD-10-PCS; 2020-07-29)
PROC: B54NZZA Ultrasonography of Left Upper Extremity Veins, Guidance (ICD-10-PCS; 2020-07-29)
PROC: 5A1935Z Respiratory Ventilation, Less than 24 Consecutive Hours (ICD-10-PCS; 2020-08-01)
PROC: 02HV33Z Insertion of Infusion Device into Superior Vena Cava, Percutaneous Approach (ICD-10-PCS; 2020-08-01)
PROC: 0BH17EZ Insertion of Endotracheal Airway into Trachea, Via Natural or Artificial Opening (ICD-10-PCS; 2020-08-01)
PROC: 4A023N8 Measurement of Cardiac Sampling and Pressure, Bilateral, Percutaneous Approach (ICD-10-PCS; principal; 2020-08-02)
PROC: B2151ZZ Fluoroscopy of Left Heart using Low Osmolar Contrast (ICD-10-PCS; 2020-08-02)
PROC: B2111ZZ Fluoroscopy of Multiple Coronary Arteries using Low Osmolar Contrast (ICD-10-PCS; 2020-08-02)
PROC: 02HV33Z Insertion of Infusion Device into Superior Vena Cava, Percutaneous Approach (ICD-10-PCS; 2020-08-02)
DX: A41.9 Sepsis, unspecified organism (principal); J81.0 Acute pulmonary edema; J96.01 Acute respiratory failure with hypoxia; E43 Unspecified severe protein-calorie malnutrition; N17.0 Acute kidney failure with tubular necrosis; K72.00 Acute and subacute hepatic failure without coma; R65.21 Severe sepsis with septic shock; R57.0 Cardiogenic shock; K72.10 Chronic hepatic failure without coma; D68.4 Acquired coagulation factor deficiency; J91.8 Pleural effusion in other conditions classified elsewhere; I08.3 Combined rheumatic disorders of mitral, aortic and tricuspid valves; I48.0 Paroxysmal atrial fibrillation; I48.20 Chronic atrial fibrillation, unspecified; K74.60 Unspecified cirrhosis of liver; L03.115 Cellulitis of right lower limb; E05.90 Thyrotoxicosis, unspecified without thyrotoxic crisis or storm; I31.3 Pericardial effusion (noninflammatory); E87.6 Hypokalemia; I13.0 Hypertensive heart and chronic kidney disease with heart failure and stage 1 through stage 4 chronic kidney disease, or unspecified chronic kidney disease; N18.31 Chronic kidney disease, stage 3a; E11.22 Type 2 diabetes mellitus with diabetic chronic kidney disease; E55.9 Vitamin D deficiency, unspecified; E87.5 Hyperkalemia; F15.10 Other stimulant abuse, uncomplicated; F17.210 Nicotine dependence, cigarettes, uncomplicated; I42.0 Dilated cardiomyopathy; I50.82 Biventricular heart failure; J45.909 Unspecified asthma, uncomplicated; R31.0 Gross hematuria; I50.43 Acute on chronic combined systolic (congestive) and diastolic (congestive) heart failure; A49.02 Methicillin resistant Staphylococcus aureus infection, unspecified site; I31.1 Chronic constrictive pericarditis; I42.5 Other restrictive cardiomyopathy; Z20.822 Contact with and (suspected) exposure to COVID-19; Z79.01 Long term (current) use of anticoagulants; Z82.49 Family history of ischemic heart disease and other diseases of the circulatory system; Z83.3 Family history of diabetes mellitus; Z91.19 Patient's noncompliance with other medical treatment and regimen; Z88.5 Allergy status to narcotic agent; Z88.0 Allergy status to penicillin; E87.1 Hypo-osmolality and hyponatremia
CPT/HCPCS: 10022; 36415; 36569; 71045; 74177; 76604; 76642; 76705; 76775; 76856; 76942; 80048; 80053; 80061; 80076; 80162; 80307; 81001; 82040; 82088; 82140; 82306; 82533; 82570; 82962; 83036; 83516; 83605; 83735; 83880; 83986; 84132; 84156; 84300; 84439; 84443; 84481; 84484; 85007; 85014; 85018; 85025; 85027; 85379; 85610; 85730; 86141; 86225; 86235; 86703; 86704; 86706; 86708; 86803; 86850; 86900; 86901; 87040; 87070; 87081; 87086; 87088; 87186; 87205; 87340; 87426; 89051; 93005; 93306; 93460; 93970; 94640; 97116; 97530; 99152; 99153; 99291; C1751; G0378; J0696; J1642; J1815; J2001; J2185; J2250; J2405; J3480; J3490; J7060; P9047; Q9967